=== PATIENT | male | born 1960 | race Caucasian/White ===

== ENCOUNTER → 2016-09-18 | Outpatient (CLI) | payer BC, OTHER ==
--- NOTE | 2016-09-18 10:49 | DIAGNOSTIC IMAGING REPORT ---
LEFT KNEE 3 VIEWS CLINICAL HISTORY: 56 years-old Male presenting with LEFT KNEE PAIN RIGHT SHOULDER PAIN. TECHNIQUE: Bilateral the frontal views of the knees in standing position and lateral and sunrise views of the left knee were obtained. COMPARISON: None. FINDINGS: Knee joints congruent. No acute fracture or malalignment. Fragmentation at the tibial tuberosity likely suggests degenerative changes of the patellar tendon. Small knee joint effusion may be present. Patellofemoral articulation unremarkable. IMPRESSION: No acute osseous injury or significant degenerative change. Electronically signed by: Heber Joshi M.D. 09/18/2016 10:48 AM Dictated Date/Time: 09/18/2016 10:45 AM
--- NOTE | 2016-09-18 10:51 | DIAGNOSTIC IMAGING REPORT ---
RIGHT SHOULDER MIN 2 VIEWS CLINICAL HISTORY: 56 years-old Male presenting with LEFT KNEE PAIN RIGHT SHOULDER PAIN. TECHNIQUE: Internal rotation, transscapular Y, and axillary views of the right shoulder were obtained. COMPARISON: Correlation made to plain radiographs of the right humerus from 2015. FINDINGS: Glenohumeral and acromioclavicular joints congruent. No radiographic evidence of significant degenerative change. No acute fracture. Visualized portion of the right hemithorax normal. IMPRESSION: No acute osseous injury of the right shoulder. Electronically signed by: Heber Joshi M.D. 09/18/2016 10:50 AM Dictated Date/Time: 09/18/2016 10:48 AM
== END | disposition home or self-care (01) ==
LOC: C.RDSM 12:23
PROVIDERS: ATTEND Family Medicine
DX: M25.562 Pain in left knee (principal)